=== PATIENT | male | born 1945 | race Caucasian/White ===

== ENCOUNTER 2016-08-02 02:45 | Inpatient (IN) | payer MEDICARE, BC ==
[2016-08-02] VITALS (11 sets, daily range): BP systolic 107–146; BP diastolic 62–86; PULSE 71–100; TEMP 97.3–98.4
[~2016-08-02] VITALS: Ht 177.8 cm; Wt 110.8 kg
[~2016-08-02 02:45] MED LIST: ACTOS 45MG45 MG/TAB PO; ACTOS45 MG PO; ALLEGRA180 MG PO; AMITRIPTYLINE H50 M1 PO; ANTIVERT 12.512.5 MG PO; ANTIVERT 25MG25 MG PO; ASPI325T6 PO; ASPIRIN 32325 MG/TAB PO; ASPIRIN 81M81 MG/TA2 PO; AURYXIA1 GM PO; BYETTA; BYETTA PO; BYSTOLIC2.5 MG PO; BYSTOLIC20 MG PO; BYSTOLIC5 MG PO; CARDI-OMEGA1000 MG PO; CLARITIN 1010 MG/TAB PO; CLARITIN REDITA10 MG PO; COLACE 100100 MG/CAP PO; CORDARONE200 MG/TAB PO; COUMADIN 1MG1 MG/TAB PO; DOXYCYCLINE 10100 MG PO; ECOTRIN325 MG PO; ELIQUIS 5MG PO; FERROUS SU325 MG/TAB PO; FEXOFENADINE180 MG PO; FISH OIL 1000MG1 CAP PO; FISH OIL CONC1000 MG PO; FOLIC ACID; FOLIC ACID 40400 MCG PO; GEMCOR600 MG PO; GLUCOPHAGE1000 MG PO; IRON325 MG PO; LEVOTHYROXINE0.15 MG PO; LEVOXYL0.15 MG PO; LIPITOR 40MG TA40 MG PO; LIPITOR 80MG80 MG PO; LOPID 600M600 MG/TAB PO; MAG-OX 400400 MG/TAB PO; METFORMIN1000 MG PO; METOPROLOL; METOPROLOL SR100 MG PO; MYSOLINE 5050 MG/TAB PO; NEPHROCAP PO; NIACIN PO; NIACIN TIME RE500 MG PO; NITROSTAT0.4 MG/TAB SL; NORCO 325 MG-51 TAB PO; NORCO 325 MG-7.1 TAB PO; PLAVIX 75MG TAB75 MG PO; PRIMIDONE50 MG PO; PROTONIX 40MG T40 MG PO; REMERON 15M15 MG/TA1 PO; RENO CAPS1 SGL PO; RENVELA800 MG PO; SINGULAIR 110 MG/TAB PO; SYNTHROID 0.10.15 MG PO; SYNTHROID PO; TIROSINT150 MCG PO; VICTOZA6 MG/ML SC; VICTOZA6 MG/ML SQ; VITAMIN C500 MG PO; VITAMIN D 1001000 IU PO; VITAMIND3 5000 PO; Vitamin D3 PO; ZOCOR 20MG20 MG PO; ZOCOR40 MG PO
[2016-08-02 03:26] LABS: BASO % 0.6 % (0.0-2.0); EOS # 0.2 (0.0-0.7); EOS % 2.8 % (0-4.0); GRAN # 4.1 (1.4-6.5); GRAN % 76.4 % (42.2-75.2); LYMPH # 0.6 (1.2-3.4); LYMPH % 10.7 % (20.0-51.0); MEAN CELL VOLUME 110 fl (80.0-100.0); MEAN CORPUSCULAR HGB CONC 32 g/dl (33.0-37.0); MEAN PLATELET VOLUME 10.7 fl (7.4-10.4); MONO # 0.5 (0.1-0.6); MONO % 8.6 % (1.7-9.3); PLATELET COUNT 111 K/mm3 (130-400); RED BLOOD COUNT 2.37 M/mm3 (4.20-5.60); REDCELL DISTRIBUTION WIDTH-CV 15.1 % (11.5-14.5); WHITE BLOOD COUNT 5.4 K/mm3 (4.8-10.8)
[2016-08-02 03:28] LABS: HEMOGLOBIN 8.4 g/dl (13.5-18.0); MEAN CORPUSCULAR HEMOGLOBIN 35 pg (27.0-31.0)
[2016-08-02 03:41] LABS: ALBUMIN 4.2 gm/dL (3.5-5.0); BILIRUBIN,TOTAL 0.7 mg/dL (0.0-1.0); CALCIUM 9.2 mg/dL (8.4-10.2)
[2016-08-02 03:52] LABS: CREATININE, serum 8.08 mg/dL (0.66-1.25)
[2016-08-02 03:53] LABS: TROPONIN-I 0.035 ng/mL (0.000-0.034)
[2016-08-02 04:10] LABS: INR 2.4 (0.8-3.0); PROTHROMBIN TIME 27.8 SECONDS (9.7-12.8)
[2016-08-02] MEDS ORDERED: AURYXIA1 GM (14:14)
[2016-08-02] MEDS ORDERED: COUMADIN 1MG1 MG/TAB PO (15:04)
[2016-08-02 15:40] LABS: RETIC % 3.3 % (0.5-3.52)
[2016-08-03 00:01] VITALS: BP 96/40; PULSE 78; TEMP 97.5
[2016-08-03 03:12] VITALS: BP 107/54; PULSE 78; TEMP 97.5
[2016-08-03 08:21] LABS: BASO % 0.4 % (0.0-2.0); EOS # 0.1 (0.0-0.7); EOS % 2.9 % (0-4.0); GRAN # 3.4 (1.4-6.5); GRAN % 74.9 % (42.2-75.2); INR 1.7 (0.8-3.0); LYMPH # 0.5 (1.2-3.4); LYMPH % 10.9 % (20.0-51.0); MEAN CORPUSCULAR HGB CONC 33 g/dl (33.0-37.0); MEAN PLATELET VOLUME 10.7 fl (7.4-10.4); MONO # 0.5 (0.1-0.6); PLATELET COUNT 103 K/mm3 (130-400); PROTHROMBIN TIME 19.5 SECONDS (9.7-12.8); RED BLOOD COUNT 2.66 M/mm3 (4.20-5.60); REDCELL DISTRIBUTION WIDTH-CV 16.3 % (11.5-14.5); WHITE BLOOD COUNT 4.5 K/mm3 (4.8-10.8)
[2016-08-03 08:23] LABS: HEMATOCRIT 27.9 % (42.0-52.0); HEMOGLOBIN 9.2 g/dl (13.5-18.0); MEAN CELL VOLUME 105 fl (80.0-100.0); MEAN CORPUSCULAR HEMOGLOBIN 35 pg (27.0-31.0)
[2016-08-03 09:01] LABS: ADJUSTED CALCIUM 9.5 mg/dL (8.4-10.2); ALBUMIN 4.1 gm/dL (3.5-5.0); BILIRUBIN,TOTAL 0.7 mg/dL (0.0-1.0); CALCIUM 9.6 mg/dL (8.4-10.2); POTASSIUM 5.1 mmol/L (3.4-5.0)
[2016-08-03 09:24] VITALS: BP 112/55; PULSE 91; TEMP 97.8
[2016-08-03 10:09] LABS: CREATININE, serum 6.11 mg/dL (0.66-1.25)
[2016-08-03 11:10] VITALS: BP 132/68; PULSE 86; TEMP 97.7
[2016-08-04 13:16] LABS: ALBUMIN PERCENTAGE 62.1 % (48.7-61.8); ALPHA 1 FRACTION 0.4 g/dL (0.3-0.5); ALPHA 1 PERCENTAGE 5.4 % (3.4-8.3); ALPHA 2 FRACTION 0.9 g/dL (0.6-1.2); ALPHA 2 PERCENTAGE 14.4 % (8.4-17.5); BETA 1 FRACTION 0.4 g/dL (0.4-0.6); BETA 1 PERCENTAGE 5.5 % (5.4-8.9); BETA 2 FRACTION 0.3 g/dL (0.2-0.5); BETA 2 PERCENTAGE 4.6 % (3.8-7.7); GAMMA FRACTION 0.5 g/dL (0.4-1.7); SERUM PROTEIN TOTAL 6.4 g/dL (6.0-7.6)
[2016-08-05 14:55] LABS: KAPPA FREE LIGHT CHAIN-SERUM 18.1 mg/dL (()); KAPPA LAMBDA RATIO 1.92 (())
== END 2016-08-03 14:50 | disposition home or self-care (01) | DRG 640 ==
LOC: COL.ER 02:45 → MEDICAL 04:02
PROVIDERS: Emergency Medicine; Internal Medicine Nephrology
PROC: 5A1D00Z (ICD-10-PCS; principal; 2016-08-02)
DX: E87.5 Hyperkalemia (principal); N18.6 End stage renal disease; D62 Acute posthemorrhagic anemia; K92.2 Gastrointestinal hemorrhage, unspecified; E11.22 Type 2 diabetes mellitus with diabetic chronic kidney disease; D63.1 Anemia in chronic kidney disease; I48.91 Unspecified atrial fibrillation; Z99.2 Dependence on renal dialysis; Z79.01 Long term (current) use of anticoagulants
CPT/HCPCS: J0882; J2916; J7050; P9016

== ENCOUNTER 2016-09-09 09:10 | Outpatient (CLI) | payer MEDICARE, BC ==
[~2016-09-09] VITALS: Ht 177.8 cm; Wt 105.5 kg
[~2016-09-09 09:10] MED LIST changes: +AURYXIA1 GM
[2016-09-09 11:46] VITALS: BP 127/80; PULSE 90
[2016-09-09 11:54] VITALS: BP 125/79; PULSE 82
[2016-09-09 12:03] VITALS: BP 122/75; PULSE 91
== END 2016-09-09 14:32 | disposition home or self-care (01) ==
LOC: COL.RAD 09:10
DX: I08.0 Rheumatic disorders of both mitral and aortic valves (principal); R94.39 Abnormal result of other cardiovascular function study; I24.8 Other forms of acute ischemic heart disease
CPT/HCPCS: J2250; J2704; J7030

== ENCOUNTER 2016-10-19 22:05 | Inpatient (IN) | payer MEDICARE, BC ==
[~2016-10-19] VITALS: Ht 177.8 cm; Wt 109.5 kg
[2016-10-19 22:36] LABS: BASO % 0.4 % (0.0-2.0); EOS # 0.1 (0.0-0.7); EOS % 1.5 % (0-4.0); GRAN # 3.4 (1.4-6.5); GRAN % 73.5 % (42.2-75.2); LYMPH # 0.6 (1.2-3.4); LYMPH % 12.3 % (20.0-51.0); MEAN CELL VOLUME 110 fl (80.0-100.0); MEAN CORPUSCULAR HGB CONC 32 g/dl (33.0-37.0); MEAN PLATELET VOLUME 10.3 fl (7.4-10.4); MONO # 0.5 (0.1-0.6); PLATELET COUNT 109 K/mm3 (130-400); RED BLOOD COUNT 1.82 M/mm3 (4.20-5.60); REDCELL DISTRIBUTION WIDTH-CV 16.8 % (11.5-14.5); WHITE BLOOD COUNT 4.6 K/mm3 (4.8-10.8)
[2016-10-19 22:40] LABS: HEMATOCRIT 20.1 % (42.0-52.0); HEMOGLOBIN 6.5 g/dl (13.5-18.0); MEAN CORPUSCULAR HEMOGLOBIN 36 pg (27.0-31.0)
[2016-10-19 22:44] LABS: ADJUSTED CALCIUM 9.2 mg/dL (8.4-10.2); ALBUMIN 4.1 gm/dL (3.5-5.0); BILIRUBIN,TOTAL 0.8 mg/dL (0.0-1.0); CALCIUM 9.3 mg/dL (8.4-10.2); CREATININE, serum 6.35 mg/dL (0.66-1.25); MAGNESIUM 1.6 mg/dL (1.6-2.3); PHOSPHOROUS 4.4 mg/dL (2.5-4.5); POTASSIUM 5.4 mmol/L (3.4-5.0); TOTAL PROTEIN 6.8 gm/dL (6.4-8.2)
[2016-10-19 22:45] LABS: INR 1.9 (0.8-3.0); PROTHROMBIN TIME 20.9 SECONDS (9.7-12.8)
[2016-10-20] VITALS (17 sets, daily range): BP systolic 98–145; BP diastolic 49–98; PULSE 70–121; TEMP 97–98.5
[2016-10-20 08:37] LABS: HEMATOCRIT 22.5 % (42.0-52.0); HEMOGLOBIN 7.3 g/dl (13.5-18.0)
[2016-10-21 02:27] VITALS: BP 142/68; PULSE 84; TEMP 98.4
[2016-10-21 07:23] LABS: INR 2.1 (0.8-3.0)
[2016-10-21 07:44] LABS: CALCIUM 9.9 mg/dL (8.4-10.2); POTASSIUM 4.8 mmol/L (3.4-5.0)
[2016-10-21 08:14] VITALS: BP 124/69; PULSE 84; TEMP 98.3
[2016-10-21 08:35] LABS: CREATININE, serum 5.52 mg/dL (0.66-1.25)
[2016-10-21 10:36] LABS: HEMATOCRIT 27.3 % (42.0-52.0); HEMOGLOBIN 9.1 g/dl (13.5-18.0)
[2016-10-21 11:49] VITALS: BP 117/67; PULSE 85
== END 2016-10-21 18:31 | disposition home or self-care (01) | DRG 811 ==
LOC: COL.ER 22:05 → MEDICAL 22:48
PROVIDERS: Emergency Medicine; Internal Medicine
PROC: 5A1D00Z (ICD-10-PCS; principal; 2016-10-20)
DX: D64.9 Anemia, unspecified (principal); N18.6 End stage renal disease; I12.0 Hypertensive chronic kidney disease with stage 5 chronic kidney disease or end stage renal disease; E11.22 Type 2 diabetes mellitus with diabetic chronic kidney disease; D63.1 Anemia in chronic kidney disease; Z66 Do not resuscitate; I48.91 Unspecified atrial fibrillation; K55.20 Angiodysplasia of colon without hemorrhage; Z86.73 Personal history of transient ischemic attack (TIA), and cerebral infarction without residual deficits; Z99.2 Dependence on renal dialysis; Z95.1 Presence of aortocoronary bypass graft; Z95.5 Presence of coronary angioplasty implant and graft; Z96.652 Presence of left artificial knee joint; Z79.01 Long term (current) use of anticoagulants
CPT/HCPCS: J1815; P9016

== ENCOUNTER → 2016-11-11 | Outpatient (CLI) | payer MEDICARE, BC ==
[~2016-11-11] MED LIST changes: +COUMADIN 22.5 MG/TAB PO
== END ==
LOC: COL.RAD 13:42
DX: I51.7 Cardiomegaly (principal)

== ENCOUNTER 2016-12-13 09:02 | Emergency (ER) | payer MEDICARE, BC ==
[~2016-12-13] VITALS: Ht 177.8 cm; Wt 109.1 kg
[~2016-12-13 09:02] MED LIST changes: -COUMADIN 22.5 MG/TAB PO
[2016-12-13 09:05] VITALS: TEMP 98.8
[2016-12-13 09:56] LABS: BASO % 0.3 % (0.0-2.0); EOS # 0.1 (0.0-0.7); EOS % 1.9 % (0-4.0); GRAN # 5.4 (1.4-6.5); GRAN % 81.3 % (42.2-75.2); LYMPH # 0.6 (1.2-3.4); MEAN CELL VOLUME 108 fl (80.0-100.0); MEAN CORPUSCULAR HGB CONC 32 g/dl (33.0-37.0); MEAN PLATELET VOLUME 10.3 fl (7.4-10.4); MONO # 0.4 (0.1-0.6); MONO % 6.6 % (1.7-9.3); PLATELET COUNT 157 K/mm3 (130-400); RED BLOOD COUNT 1.79 M/mm3 (4.20-5.60); REDCELL DISTRIBUTION WIDTH-CV 17.8 % (11.5-14.5); WHITE BLOOD COUNT 6.7 K/mm3 (4.8-10.8)
[2016-12-13 10:00] LABS: HEMOGLOBIN 6.2 g/dl (13.5-18.0); MEAN CORPUSCULAR HEMOGLOBIN 35 pg (27.0-31.0); PROTHROMBIN TIME 22.5 SECONDS (9.7-12.8)
[2016-12-13 10:01] LABS: HEMATOCRIT 19.4 % (42.0-52.0)
[2016-12-13 10:05] LABS: MAGNESIUM 1.6 mg/dL (1.6-2.3); PHOSPHOROUS 4.2 mg/dL (2.5-4.5)
[2016-12-13 10:07] LABS: CALCIUM 9.1 mg/dL (8.4-10.2); POTASSIUM 5.2 mmol/L (3.4-5.0)
[2016-12-13 10:10] LABS: C-REACTIVE PROTEIN 0.5 mg/dL (0.0-0.9); CREATININE, serum 8.25 mg/dL (0.66-1.25)
[2016-12-13 10:17] LABS: TROPONIN-I 0.018 ng/mL (0.000-0.034)
[2016-12-13 10:22] LABS: ERYTHROCYTE SEDIMENTATION RATE 115 mm/hr (0-30)
[2016-12-13 11:22] VITALS: BP 111/79; PULSE 97
== END 2016-12-13 11:22 | disposition home or self-care (01) ==
LOC: COL.ER 09:02
PROVIDERS: Emergency Medicine
DX: D64.9 Anemia, unspecified (principal); D63.1 Anemia in chronic kidney disease; N18.6 End stage renal disease; Z99.2 Dependence on renal dialysis; I48.2 Chronic atrial fibrillation; Z79.01 Long term (current) use of anticoagulants; I25.10 Atherosclerotic heart disease of native coronary artery without angina pectoris; Z95.1 Presence of aortocoronary bypass graft; K25.9 Gastric ulcer, unspecified as acute or chronic, without hemorrhage or perforation

== ENCOUNTER 2016-12-13 11:14 | Outpatient (RCR) | payer MEDICARE, BC ==
[2016-12-13] VITALS (9 sets, daily range): BP systolic 109–136; BP diastolic 43–72; PULSE 77–85; TEMP 97.7–98.4
== END 2016-12-13 18:45 | disposition home or self-care (01) ==
LOC: EUO 11:14
DX: K92.2 Gastrointestinal hemorrhage, unspecified (principal); Z99.2 Dependence on renal dialysis
CPT/HCPCS: P9016

== ENCOUNTER 2016-12-18 23:15 | Inpatient (IN) | payer MEDICARE, BC ==
[~2016-12-18] VITALS: Ht 177.8 cm; Wt 110.9 kg
[2016-12-19] VITALS (747 sets, daily range): BP systolic 89–140; BP diastolic 43–90; PULSE 73–88; TEMP 97–9739; O2SAT 77–100
[2016-12-19 00:31] LABS: INR 1.7 (0.8-3.0); PROTHROMBIN TIME 19.5 SECONDS (9.7-12.8)
[2016-12-19 00:36] LABS: ADJUSTED CALCIUM 9.1 mg/dL (8.4-10.2); ALBUMIN 3.9 gm/dL (3.5-5.0); BILIRUBIN,TOTAL 0.6 mg/dL (0.0-1.0); TOTAL PROTEIN 6.5 gm/dL (6.4-8.2)
[2016-12-19 00:38] LABS: CREATININE, serum 5.23 mg/dL (0.66-1.25); POTASSIUM 5.8 mmol/L (3.4-5.0)
[2016-12-19] MEDS ORDERED: COUMADIN 22.5 MG/TAB PO (01:04)
[2016-12-19 01:36] LABS: BASO % 0.4 % (0.0-2.0); EOS # 0.1 (0.0-0.7); EOS % 2.7 % (0-4.0); GRAN # 3.5 (1.4-6.5); GRAN % 73.6 % (42.2-75.2); LYMPH # 0.5 (1.2-3.4); LYMPH % 11.4 % (20.0-51.0); MEAN CELL VOLUME 105 fl (80.0-100.0); MEAN CORPUSCULAR HGB CONC 32 g/dl (33.0-37.0); MEAN PLATELET VOLUME 10.5 fl (7.4-10.4); MONO # 0.5 (0.1-0.6); MONO % 10.8 % (1.7-9.3); PLATELET COUNT 120 K/mm3 (130-400); RED BLOOD COUNT 1.84 M/mm3 (4.20-5.60); REDCELL DISTRIBUTION WIDTH-CV 20.9 % (11.5-14.5); RETIC % 4.3 % (0.5-3.52); WHITE BLOOD COUNT 4.7 K/mm3 (4.8-10.8)
[2016-12-19 01:37] LABS: HEMATOCRIT 19.3 % (42.0-52.0); HEMOGLOBIN 6.2 g/dl (13.5-18.0); MEAN CORPUSCULAR HEMOGLOBIN 34 pg (27.0-31.0)
[2016-12-19 06:04] LABS: HEMATOCRIT 22.3 % (42.0-52.0)
[2016-12-20 01:31] VITALS: BP 114/63; PULSE 77; TEMP 98
[2016-12-20 04:54] VITALS: BP 107/54; PULSE 85; TEMP 98
[2016-12-20 08:02] LABS: BASO % 0.4 % (0.0-2.0); EOS # 0.2 (0.0-0.7); EOS % 4.1 % (0-4.0); GRAN # 3.5 (1.4-6.5); GRAN % 76.2 % (42.2-75.2); LYMPH # 0.5 (1.2-3.4); LYMPH % 10.6 % (20.0-51.0); MEAN CELL VOLUME 101 fl (80.0-100.0); MEAN CORPUSCULAR HGB CONC 32 g/dl (33.0-37.0); MEAN PLATELET VOLUME 10.2 fl (7.4-10.4); MONO # 0.4 (0.1-0.6); PLATELET COUNT 100 K/mm3 (130-400); RED BLOOD COUNT 2.45 M/mm3 (4.20-5.60); REDCELL DISTRIBUTION WIDTH-CV 19.9 % (11.5-14.5); WHITE BLOOD COUNT 4.6 K/mm3 (4.8-10.8)
[2016-12-20 08:10] LABS: HEMATOCRIT 24.7 % (42.0-52.0); MEAN CORPUSCULAR HEMOGLOBIN 33 pg (27.0-31.0)
[2016-12-20 08:17] LABS: CALCIUM 9.3 mg/dL (8.4-10.2)
[2016-12-20 08:19] LABS: CREATININE, serum 4.69 mg/dL (0.66-1.25)
[2016-12-20 15:26] VITALS: BP 125/60; PULSE 85; TEMP 98.1
[2016-12-20 19:41] VITALS: BP 125/55; PULSE 84; TEMP 98.3
[2016-12-20 23:11] VITALS: BP 112/50; PULSE 89; TEMP 98.7
[2016-12-21 02:59] VITALS: BP 100/69; PULSE 90; TEMP 98.5
[2016-12-21 07:23] VITALS: BP 121/71; PULSE 83; TEMP 98.2
[2016-12-21 09:02] LABS: HEMATOCRIT 24.1 % (42.0-52.0); HEMOGLOBIN 7.8 g/dl (13.5-18.0)
[2016-12-21 09:07] LABS: INR 1.6 (0.8-3.0); PROTHROMBIN TIME 17.7 SECONDS (9.7-12.8)
[2016-12-21 11:56] VITALS: BP 124/65; PULSE 72
[2016-12-21 17:04] VITALS: BP 123/65; PULSE 68; TEMP 98.3
[2016-12-21 17:15] LABS: HEMATOCRIT 23.9 % (42.0-52.0); HEMOGLOBIN 7.7 g/dl (13.5-18.0)
[2016-12-21 20:00] VITALS: BP 140/80; PULSE 92; TEMP 98
[2016-12-22 04:00] VITALS: BP 157/85; PULSE 97; TEMP 98.4
[2016-12-22 07:34] LABS: INR 1.8 (0.8-3.0); PROTHROMBIN TIME 20.9 SECONDS (9.7-12.8)
[2016-12-22 12:00] VITALS: BP 123/56; PULSE 93; TEMP 97.5
== END 2016-12-22 15:50 | disposition home or self-care (01) | DRG 377 ==
LOC: COL.ER 23:15 → MEDICAL 12-19 00:43 → ICU 12-19 00:43 → MEDICAL 12-19 17:00
PROVIDERS: Family Medicine; Internal Medicine
PROC: 5A1D60Z (ICD-10-PCS; principal; 2016-12-19)
DX: K92.2 Gastrointestinal hemorrhage, unspecified (principal); N18.6 End stage renal disease; I13.2 Hypertensive heart and chronic kidney disease with heart failure and with stage 5 chronic kidney disease, or end stage renal disease; I50.32 Chronic diastolic (congestive) heart failure; I23.6 Thrombosis of atrium, auricular appendage, and ventricle as current complications following acute myocardial infarction; Z66 Do not resuscitate; E11.22 Type 2 diabetes mellitus with diabetic chronic kidney disease; I25.10 Atherosclerotic heart disease of native coronary artery without angina pectoris; E11.42 Type 2 diabetes mellitus with diabetic polyneuropathy; Z99.2 Dependence on renal dialysis; D63.1 Anemia in chronic kidney disease; J45.909 Unspecified asthma, uncomplicated; Z95.1 Presence of aortocoronary bypass graft; I48.91 Unspecified atrial fibrillation; Z79.01 Long term (current) use of anticoagulants; E87.5 Hyperkalemia; Z86.73 Personal history of transient ischemic attack (TIA), and cerebral infarction without residual deficits
CPT/HCPCS: J0882; J2916; P9016

== ENCOUNTER 2016-12-26 19:00 | Inpatient (IN) | payer MEDICARE, BC ==
[~2016-12-26] VITALS: Ht 177.8 cm; Wt 114.5 kg
[~2016-12-26 19:00] MED LIST changes: +COUMADIN 22.5 MG/TAB PO
[2016-12-26 19:32] LABS: BASO % 0.4 % (0.0-2.0); EOS # 0.2 (0.0-0.7); EOS % 3.4 % (0-4.0); GRAN # 4.4 (1.4-6.5); GRAN % 78.3 % (42.2-75.2); LYMPH # 0.5 (1.2-3.4); LYMPH % 8.3 % (20.0-51.0); MEAN CELL VOLUME 104 fl (80.0-100.0); MEAN CORPUSCULAR HGB CONC 32 g/dl (33.0-37.0); MEAN PLATELET VOLUME 10.4 fl (7.4-10.4); MONO # 0.5 (0.1-0.6); MONO % 8.9 % (1.7-9.3); PLATELET COUNT 120 K/mm3 (130-400); RED BLOOD COUNT 1.91 M/mm3 (4.20-5.60); REDCELL DISTRIBUTION WIDTH-CV 20.3 % (11.5-14.5); WHITE BLOOD COUNT 5.6 K/mm3 (4.8-10.8)
[2016-12-26 19:35] LABS: HEMATOCRIT 19.9 % (42.0-52.0); HEMOGLOBIN 6.3 g/dl (13.5-18.0); INR 4.4 (0.8-3.0); MEAN CORPUSCULAR HEMOGLOBIN 33 pg (27.0-31.0)
[2016-12-26 19:36] LABS: PROTHROMBIN TIME 51.6 SECONDS (9.7-12.8)
[2016-12-26 19:37] LABS: PARTIAL THROMBOPLASTIN TIME 45.5 SECONDS (26.0-37.0)
[2016-12-26 19:40] LABS: ADJUSTED CALCIUM 9.2 mg/dL (8.4-10.2); ALBUMIN 3.8 gm/dL (3.5-5.0); BILIRUBIN,TOTAL 0.6 mg/dL (0.0-1.0); POTASSIUM 5.7 mmol/L (3.4-5.0); TOTAL PROTEIN 6.4 gm/dL (6.4-8.2)
[2016-12-26 19:44] LABS: CREATININE, serum 6.43 mg/dL (0.66-1.25)
[2016-12-26 19:52] LABS: TROPONIN-I 0.026 ng/mL (0.000-0.034)
[2016-12-26 21:44] VITALS: BP 115/65; PULSE 88; TEMP 98.8
[2016-12-26 23:55] VITALS: BP 113/52; PULSE 89; TEMP 97.8
[2016-12-27] VITALS (10 sets, daily range): BP systolic 101–151; BP diastolic 66–93; PULSE 82–95; TEMP 97.5–98.2
[2016-12-27 07:36] LABS: MEAN CELL VOLUME 101 fl (80.0-100.0); MEAN CORPUSCULAR HGB CONC 32 g/dl (33.0-37.0); MEAN PLATELET VOLUME 10.6 fl (7.4-10.4); PLATELET COUNT 123 K/mm3 (130-400); RED BLOOD COUNT 2.51 M/mm3 (4.20-5.60); REDCELL DISTRIBUTION WIDTH-CV 20.6 % (11.5-14.5)
[2016-12-27 07:38] LABS: INR 4.2 (0.8-3.0)
[2016-12-27 07:40] LABS: HEMATOCRIT 25.4 % (42.0-52.0); HEMOGLOBIN 8.2 g/dl (13.5-18.0); MEAN CORPUSCULAR HEMOGLOBIN 33 pg (27.0-31.0)
[2016-12-27 07:41] LABS: PROTHROMBIN TIME 49.8 SECONDS (9.7-12.8)
[2016-12-27 07:43] LABS: ALBUMIN 3.9 gm/dL (3.5-5.0); CALCIUM 9.2 mg/dL (8.4-10.2); PHOSPHOROUS 4.2 mg/dL (2.5-4.5)
[2016-12-27 07:47] LABS: CREATININE, serum 6.9 mg/dL (0.66-1.25)
== END 2016-12-27 14:25 | disposition short-term general hospital (02) | DRG 377 ==
LOC: COL.ER 19:00 → MEDICAL 19:57
PROVIDERS: Emergency Medicine; Internal Medicine Nephrology
PROC: 5A1D60Z (ICD-10-PCS; principal; 2016-12-27)
DX: K92.2 Gastrointestinal hemorrhage, unspecified (principal); N18.6 End stage renal disease; I13.2 Hypertensive heart and chronic kidney disease with heart failure and with stage 5 chronic kidney disease, or end stage renal disease; I50.32 Chronic diastolic (congestive) heart failure; Z66 Do not resuscitate; D64.9 Anemia, unspecified; E11.22 Type 2 diabetes mellitus with diabetic chronic kidney disease; Z99.2 Dependence on renal dialysis; I48.91 Unspecified atrial fibrillation; Z79.01 Long term (current) use of anticoagulants
CPT/HCPCS: J0882; J2405; J2916; J7050; P9016